=== PATIENT | male | born 1975 | race Caucasian/White ===

== ENCOUNTER 2017-01-02 18:25 | Emergency (ER) | payer MEDICAID ==
[~2017-01-02 18:25] MED LIST: A/T/S 2% GEL30 GM TOP; ASCORBIC ACID500 MG PO; CERTAGEN PO; DARVOCET-N 1001 TAB PO; HYDROCORTISONE28 GM TOP; KEFLEX PO; ULTRAM PO; UROXATRAL10 MG; VIT B-12 PO
== END 2017-01-02 18:26 | disposition home or self-care (01) ==
LOC: SED 18:25
DX: T40.2X5A Adverse effect of other opioids, initial encounter (principal); F17.210 Nicotine dependence, cigarettes, uncomplicated
CPT/HCPCS: 99282